=== PATIENT | female | born 1990 | race Caucasian/White ===

== ENCOUNTER 2018-08-01 23:22 | Emergency (ER) | payer MEDICAID ==
[~2018-08-01] VITALS: Ht 157.5 cm; Wt 67.0 kg
[2018-08-02 01:29] LABS: BASOPHILS % 0.4 % (0.0-2.0); EOSINOPHILS % 3.1 % (0.0-5.0); HEMATOCRIT. 37.6 % (36.0-48.0); HEMOGLOBIN. 12.8 g/dL (12.0-16.0); LYMPHOCYTES % 24.8 % (20.0-50.0); MEAN CORPUSCULAR HEMOGLOBIN 31.8 pg (28.0-32.0); MEAN CORPUSCULAR VOLUME 93.3 fL (81.0-99.0); MEAN PLATELET VOLUME 9.4 fl (7.4-10.4); MONOCYTES % 7.6 % (2.0-8.0); NEUTROPHILS % 64.1 % (40.0-76.0); PLATELET 200 x1000/uL (130-400); RED BLOOD CELL COUNT 4.03 mill/uL (4.2-5.4); RED CELL DISTRIBUTION WIDTH 13.5 % (11.6-14.6)
[2018-08-02] MEDS ORDERED: KETOROLAC 30MG/ML VIAL IV ONE (01:30)
[2018-08-02 01:33] LABS: CHLORIDE 108 mEq/L (98-107)
[2018-08-02 01:34] LABS: INR 1.1
[2018-08-02 01:36] LABS: HCG SCREEN NEGATIVE
[2018-08-02] MEDS ORDERED: MORPHINE SULFATE 4 MG/ML CPJ (NOT FOR IM USE) IV ONE (02:45)
[2018-08-02 04:25] VITALS: BP 110/65
== END 2018-08-02 04:27 | disposition home or self-care (01) ==
LOC: ER 23:22
DX: G89.18 Other acute postprocedural pain (principal); R10.9 Unspecified abdominal pain; R06.02 Shortness of breath; R07.89 Other chest pain; Z90.49 Acquired absence of other specified parts of digestive tract; Z90.89 Acquired absence of other organs
CPT/HCPCS: 36415; 71045; 74176; 80053; 83690; 84703; 85025; 85610; 93005; 96374; 96375; 99285; J1885; J2270; Z7610